=== PATIENT | female | born 1940 | race Caucasian/White ===

== ENCOUNTER → 2016-12-23 | Outpatient (CLI) | payer OTHER ==
--- NOTE | 2016-12-25 16:41 | US ---
ULTRASOUND OF THE ABDOMEN HISTORY: Bloating Comparison: None Technique: Multiple hall scale and color flow Doppler images of the abdomen were obtained. Findings: Overall study is limited by overlying bowel gas. The liver is normal in echotexture and size. No foc al mass. No intrahepatic bile duct dilatation. Shadowing stones within the gallbladder. No pericholec ystic fluid or gallbladder wall thickening. The technologist did not report a positive sonographic Mu rphy's sign. The common bile duct measures 5 mm. The spleen is normal in size. The pancreas is obscur ed by bowel gas. The kidneys are normal in echogenicity. The right kidney measures 9.8 cm. No focal mass, hydronephros is, or stones identified. The left kidney measures 9.7 cm. No focal mass, hydronephrosis, or stone identified. The visualized portions of the abdominal aorta are normal in size without aneurysmal dilatation. The inferior vena cava is unremarkable as well. IMPRESSION: 1. Cholelithiasis without evidence of cholecystitis. Reported By:
== END | disposition home or self-care (01) | DRG 392 ==
LOC: RAD 08:51
PROVIDERS: ATTEND Internal Medicine Gastroenterology
DX: R14.0 Abdominal distension (gaseous) (principal); R10.84 Generalized abdominal pain; K80.80 Other cholelithiasis without obstruction
CPT/HCPCS: 76700